=== PATIENT | male | born 1945 | race Caucasian/White ===

== ENCOUNTER → 2024-02-24 08:55 | Outpatient (REF) | payer MEDICARE, OTHER, SELFPAY | LOC: RAD 08:55 | PROVIDERS: ATTENDING PHYSICIAN Family Medicine | DX: I73.9 Peripheral vascular disease, unspecified (principal) | CPT/HCPCS: 93923 ==

== ENCOUNTER → 2024-02-29 15:42 | Outpatient (REF) | payer MEDICARE, OTHER, SELFPAY | LOC: RAD 15:42 | PROVIDERS: ATTENDING PHYSICIAN Surgery Vascular Surgery; FAMILY PHYSICIAN Family Medicine | DX: I73.9 Peripheral vascular disease, unspecified (principal); I71.40 Abdominal aortic aneurysm, without rupture, unspecified | CPT/HCPCS: 75635; Q9967 ==

== ENCOUNTER 2024-03-30 10:00 | Outpatient (RCR) | payer OTHER, SELFPAY ==
[2024-03-30 11:16] LABS: Glucose - Point of Care 155 mg/dl (70-99)
[2024-03-30 11:57] LABS: Glucose - Point of Care 132 mg/dl (70-99)
== END 2024-03-30 23:59 | disposition home or self-care (01) ==
LOC: CRHB 10:00
PROVIDERS: ATTENDING PHYSICIAN Surgery Vascular Surgery; FAMILY PHYSICIAN Family Medicine
DX: I70.213 Atherosclerosis of native arteries of extremities with intermittent claudication, bilateral legs (principal)
CPT/HCPCS: 82962; 93668

== ENCOUNTER 2024-04-26 11:30 | Outpatient (RCR) | payer OTHER, SELFPAY ==
[2024-04-03 11:07] LABS: Glucose - Point of Care 204 mg/dl (70-99)
[2024-04-03 11:54] LABS: Glucose - Point of Care 154 mg/dl (70-99)
[2024-04-05 11:13] LABS: Glucose - Point of Care 195 mg/dl (70-99)
[2024-04-05 11:52] LABS: Glucose - Point of Care 177 mg/dl (70-99)
[2024-04-10 13:06] LABS: Glucose - Point of Care 196 mg/dl (70-99)
[2024-04-10 14:03] LABS: Glucose - Point of Care 153 mg/dl (70-99)
[2024-04-12 13:05] LABS: Glucose - Point of Care 199 mg/dl (70-99)
[2024-04-12 13:54] LABS: Glucose - Point of Care 134 mg/dl (70-99)
[2024-04-17 11:07] LABS: Glucose - Point of Care 223 mg/dl (70-99)
[2024-04-17 12:01] LABS: Glucose - Point of Care 192 mg/dl (70-99)
[2024-04-19 13:10] LABS: Glucose - Point of Care 184 mg/dl (70-99)
[2024-04-19 14:00] LABS: Glucose - Point of Care 114 mg/dl (70-99)
[2024-04-26 10:58] LABS: Glucose - Point of Care 217 mg/dl (70-99)
[2024-04-26 11:47] LABS: Glucose - Point of Care 196 mg/dl (70-99)
== END 2024-04-26 23:59 | disposition home or self-care (01) ==
LOC: CRHB 11:30
PROVIDERS: ATTENDING PHYSICIAN Surgery Vascular Surgery; FAMILY PHYSICIAN Family Medicine
DX: I70.213 Atherosclerosis of native arteries of extremities with intermittent claudication, bilateral legs (principal)
CPT/HCPCS: 82962; 93668; 93798; G0423

== ENCOUNTER → 2024-05-02 08:05 | Outpatient (REF) | payer OTHER, SELFPAY | LOC: HWRCS 08:05 | PROVIDERS: ATTENDING PHYSICIAN Internal Medicine; FAMILY PHYSICIAN Family Medicine | DX: Z01.810 Encounter for preprocedural cardiovascular examination (principal); I73.9 Peripheral vascular disease, unspecified; Z95.3 Presence of xenogenic heart valve; Z98.890 Other specified postprocedural states; I10 Essential (primary) hypertension; E78.2 Mixed hyperlipidemia | CPT/HCPCS: 78452; 93017; A9500; J2785 ==

== ENCOUNTER → 2024-05-17 13:44 | Outpatient (REF) | payer OTHER, SELFPAY | LOC: RCS 13:44 | PROVIDERS: ATTENDING PHYSICIAN Internal Medicine; FAMILY PHYSICIAN Family Medicine | DX: Z01.810 Encounter for preprocedural cardiovascular examination (principal); I73.9 Peripheral vascular disease, unspecified; Z95.3 Presence of xenogenic heart valve; Z98.890 Other specified postprocedural states; I10 Essential (primary) hypertension; E78.2 Mixed hyperlipidemia | CPT/HCPCS: 93306; Q9950 ==

== ENCOUNTER 2024-05-29 12:08 | Outpatient (RCR) | payer OTHER, SELFPAY ==
[2024-05-01 11:11] LABS: Glucose - Point of Care 253 mg/dl (70-99)
[2024-05-01 12:07] LABS: Glucose - Point of Care 178 mg/dl (70-99)
[2024-05-03 11:04] LABS: Glucose - Point of Care 213 mg/dl (70-99)
[2024-05-03 12:00] LABS: Glucose - Point of Care 173 mg/dl (70-99)
[2024-05-08 11:06] LABS: Glucose - Point of Care 218 mg/dl (70-99)
[2024-05-08 11:56] LABS: Glucose - Point of Care 191 mg/dl (70-99)
[2024-05-10 11:05] LABS: Glucose - Point of Care 219 mg/dl (70-99)
[2024-05-10 12:02] LABS: Glucose - Point of Care 185 mg/dl (70-99)
[2024-05-22 11:08] LABS: Glucose - Point of Care 300 mg/dl (70-99)
[2024-05-22 11:56] LABS: Glucose - Point of Care 204 mg/dl (70-99)
[2024-05-24 11:14] LABS: Glucose - Point of Care 241 mg/dl (70-99)
[2024-05-24 11:55] LABS: Glucose - Point of Care 206 mg/dl (70-99)
[2024-05-29 11:05] LABS: Glucose - Point of Care 251 mg/dl (70-99)
[2024-05-29 11:54] LABS: Glucose - Point of Care 181 mg/dl (70-99)
== END 2024-05-29 23:59 | disposition home or self-care (01) ==
LOC: CRHB 12:08
PROVIDERS: ATTENDING PHYSICIAN Surgery Vascular Surgery; FAMILY PHYSICIAN Family Medicine
DX: I70.213 Atherosclerosis of native arteries of extremities with intermittent claudication, bilateral legs (principal)
CPT/HCPCS: 82962; 93668

== ENCOUNTER 2024-06-21 11:25 | Outpatient (RCR) | payer OTHER, SELFPAY ==
[2024-05-31 11:07] LABS: Glucose - Point of Care 244 mg/dl (70-99)
[2024-05-31 12:04] LABS: Glucose - Point of Care 173 mg/dl (70-99)
[2024-06-07 13:04] LABS: Glucose - Point of Care 166 mg/dl (70-99)
[2024-06-07 13:59] LABS: Glucose - Point of Care 108 mg/dl (70-99)
[2024-06-12 11:07] LABS: Glucose - Point of Care 262 mg/dl (70-99)
[2024-06-12 11:57] LABS: Glucose - Point of Care 200 mg/dl (70-99)
[2024-06-14 11:08] LABS: Glucose - Point of Care 258 mg/dl (70-99)
[2024-06-14 12:06] LABS: Glucose - Point of Care 185 mg/dl (70-99)
== END 2024-06-21 23:59 | disposition home or self-care (01) ==
LOC: CRHB 11:25
PROVIDERS: ATTENDING PHYSICIAN Surgery Vascular Surgery; FAMILY PHYSICIAN Family Medicine
DX: I70.213 Atherosclerosis of native arteries of extremities with intermittent claudication, bilateral legs (principal)
CPT/HCPCS: 82962; 93668

== ENCOUNTER → 2024-09-21 09:22 | Outpatient (REF) | payer OTHER, SELFPAY | LOC: RAD 09:22 | PROVIDERS: ATTENDING PHYSICIAN Surgery Vascular Surgery; FAMILY PHYSICIAN Family Medicine | DX: I73.9 Peripheral vascular disease, unspecified (principal) | CPT/HCPCS: 93922; 93925 ==